=== PATIENT | female | born 1930 | race Caucasian/White ===

== ENCOUNTER 2016-08-17 14:42 | Observation (INO) | payer OTHER ==
[~2016-08-17] VITALS: Ht 152.4 cm; Wt 54.5 kg
[~2016-08-17 14:42] MED LIST: ACCUPRIL20 MG PO; ARTIFICIAL TEAR15 M1 BOTH EYES; ARTIFICIAL TEAR1510 BOTH EYES; ASCORBIC ACID500 M3 PO; ASPIR 8181 M1 PO; ASPIR-LOW81 MG PO; ATHENOL325 MG PO; Aspirin E.C. PO; B COMPLETE1 EACH PO; B-COMPLEX-VITA1 EACH PO; BABY ASPIRIN81 M1 PO; BACTRIM,SEPT1 TABLET PO; C COMPLEX500 MG PO; CELEBREX200 MG PO; CELECOXIB50 MG PO; CHILD ASPIRIN81 M1 PO; CILOSTAZOL100 MG PO; COLACE100 MG PO; Ceftin PO; Colace PO; DILANTIN100 MG PO; DOCUSATE SODIU100 MG PO; Duragesic TD; FENTANYL1 EAC4 TD; GLUCOPHAGE XR750 MG PO; HYDROCODON-ACE1 EAC9; IRON; K-DUR20 MEQ PO; KEFLEX500 MG PO; LASIX20 MG PO; LIDOCAINE700 MG TD; LIPITOR80 MG PO; LOW DOSE ASPIRI81 M2 PO; METFORMIN PO; MOBIC15 MG PO; MULTIVITAMIN; MULTIVITAMIN1 EAC2 PO; Monopril PO; NOVOLOG PE100 UNITS/ SC; OMEPRAZOLE20 MG PO; OXYCODONE ACETAMINOP PO; PERCOCET 5/31 TABLET PO; PHENYTEK200 MG PO; PHENYTOIN SODI200 MG PO; PHENYTOIN SODI300 MG PO; PLAVIX75 MG PO; POTASSIUM CHLO10 ME4 PO; PRAVASTATIN SOD80 MG PO; PRILOSEC OTC20 MG PO; PRILOSEC20 MG PO; PROTONIX20 MG PO; Percocet 5/325,Endoc PO; QUINAPRIL-HCTZ1 EAC1 PO; Rocephin IV; Santyl TP; TRAMADOL HCL50 MG PO; TYLENOL REGULA325 MG PO; VITAMIN E100 UNIT PO; VITAMIN E1000 UNI1 PO; VYTORIN 10/41 TABLET PO
[2016-08-17 16:40] LABS: EOSINOPHIL (%) 0.9 % (0-5); EOSINOPHIL COUNT 0.1 K/uL (0-0.3); HEMATOCRIT 47.1 % (36.0-46.0); IMMATURE GRANULOCYTE (%) 0.4 % (0.0-0.7); IMMATURE GRANULOCYTE COUNT 0.1 K/uL; INSTRUMENT ABS NEUTROPHIL CT 9.8 K/uL; LYMPHOCYTE COUNT 1.3 K/uL (1.0-2.8); MCH 30.5 PG (29.0-34.0); MCHC 32.9 G/DL (30.0-36.0); MCV 92.7 FL (83-99); MEAN PLAT.VOLUME 9.4 uM^3 (9.5-12.4); MONOCYTE (%) 5.6 % (3-12); MONOCYTE COUNT 0.7 K/uL (0-0.8); NEUTROPHIL (%) 82.3 % (45-76); NEUTROPHIL COUNT 9.8 K/uL (1.8-6.4); PLATELET COUNT 279 K/uL (156-360); RBC DIS.WIDTH-CV 15.2 % (11.8-14.6); RBC DIS.WIDTH-SD 51.8 % (39-53); RED BLOOD COUNT 5.08 M/uL (3.80-5.20); WHITE BLOOD COUNT 11.9 K/uL (4.1-10.2)
[2016-08-17 16:49] LABS: CHLORIDE 92 mEq/L (99-109); POTASSIUM 4.3 mEq/L (3.7-5.4); SODIUM 132 mEq/L (136-147)
[2016-08-17 16:51] LABS: GLUCOSE 118 mg/dL (70-99)
[2016-08-17 16:52] LABS: ANION GAP 13 MEQ/L (2-14)
[2016-08-17 16:53] LABS: TOTAL BILIRUBIN 0.4 mg/dL (0.0-1.0)
[2016-08-17 16:54] LABS: ALKALINE PHOSPHATASE 90 IU/L (3-129)
[2016-08-17 16:55] LABS: GFR ESTIMATE (CALCULATED) > 59 mL/min/
[2016-08-17 16:56] LABS: UREA NITROGEN (BUN) 19 mg/dL (9-23)
[2016-08-17 16:58] LABS: LIPASE 60 U/L (1.0-51.0)
[2016-08-17 17:01] LABS: TROP-I INTERPRETATION NEGATIVE; TROPONIN-I 0.02 ng/mL (0.0-0.30)
[2016-08-17 17:55] LABS: ADD MIUA? YES; BILIRUBIN NEGATIVE; BLOOD NEGATIVE; COLOR YELLOW ((YELLOW)); GLUCOSE (STRIP) NEGATIVE; KETONES NEGATIVE; LEUKOCYTES NEGATIVE; NITRITE NEGATIVE; PROTEIN (STRIP) 100; SPECIFIC GRAVITY 1.018 (1.000-1.030); UROBILINOGEN 0.2 MG/DL (0.2-1.0)
[2016-08-17 18:17] LABS: EPITHELIAL CELLS 1+ /HPF; RED BLOOD CELLS NONE SEEN /HPF (0-5)
[2016-08-17 18:18] LABS: BACTERIA RARE /HPF; CALCIUM OXALATE CRYSTALS RARE /HPF; CASTS PRESENT /LPF; CRYSTALS PRESENT; FINE GRANULAR CASTS RARE /LPF; HYALINE CASTS 0-5 /LPF; MUCUS NONE SEEN /LPF; UCUL ADDED? NO
[2016-08-17] MEDS ORDERED: LO-DOSE ASPIRIN81 M2 PO (19:59)
[2016-08-17 21:29] LABS: HDL CHOLESTEROL 76 MG/DL (Desirable>=50); LDL CHOLESTEROL 92 mg/dL (Desirable<100); NON-HDL CHOLESTEROL 108 mg/dL (Desirable<160); TOTAL CHOLESTEROL 184 mg/dL (Desirable<200); TRIGLYCERIDES 81 MG/DL (Normal: <150)
[2016-08-17 22:10] VITALS: BP 112/69
[2016-08-18 01:06] LABS: TROP-I INTERPRETATION NEGATIVE; TROPONIN-I < 0.01 ng/mL (0.0-0.30)
[2016-08-18 01:22] LABS: POINT-OF-CARE METER ID UU13113831
[2016-08-18 04:52] VITALS: BP 109/52
[2016-08-18 07:25] LABS: HEMATOCRIT 41.5 % (36.0-46.0); MCH 30.6 PG (29.0-34.0); MCHC 32.5 G/DL (30.0-36.0); MCV 94.1 FL (83-99); MEAN PLAT.VOLUME 9.7 uM^3 (9.5-12.4); PLATELET COUNT 249 K/uL (156-360); RBC DIS.WIDTH-CV 15.5 % (11.8-14.6); RBC DIS.WIDTH-SD 53.6 % (39-53); RED BLOOD COUNT 4.41 M/uL (3.80-5.20); WHITE BLOOD COUNT 8.5 K/uL (4.1-10.2)
[2016-08-18 07:46] LABS: TROP-I INTERPRETATION NEGATIVE; TROPONIN-I 0.02 ng/mL (0.0-0.30)
[2016-08-18 08:06] LABS: Estimated Average Glucose 140 mg/dL (70-123); HEMOGLOBIN A1c (GLYCOHEMOGLOB) 6.5 % HGB (Below 5.7)
[2016-08-18 08:15] LABS: POINT-OF-CARE METER ID UU13113831
[2016-08-18 09:59] VITALS: BP 131/65
[2016-08-18 11:31] VITALS: BP 124/59
[2016-08-18 12:35] LABS: POINT-OF-CARE METER ID UU14162513
[2016-08-18 16:13] LABS: POINT-OF-CARE METER ID UU13113694
[2016-08-18 17:57] VITALS: BP 143/64
[2016-08-18 20:00] VITALS: BP 145/62
[2016-08-18 22:25] LABS: POINT-OF-CARE METER ID UU14162513
[2016-08-19] VITALS: BP 141/63
[2016-08-19 04:00] VITALS: BP 136/63
[2016-08-19 07:54] LABS: POINT-OF-CARE METER ID UU14162513
[2016-08-19] MEDS ORDERED: DILANTIN100 MG PO (09:24)
[2016-08-19 09:31] VITALS: BP 151/65
[2016-08-19] MEDS ORDERED: PROTONIX40 MG PO (10:16)
[2016-08-19 11:00] LABS: ANION GAP 12 MEQ/L (2-14); CHLORIDE 97 MEQ/L (99-109); GFR ESTIMATE (CALCULATED) > 59 mL/min/; GLUCOSE 164 mg/dL (70-99); POTASSIUM 4.3 MEQ/L (3.7-5.4); SAMPLE HEMOLYSIS CHECK 0; SAMPLE ICTERIC CHECK 0; SAMPLE LIPEMIA CHECK 0; SODIUM 136 MEQ/L (136-147); UREA NITROGEN (BUN) 13 mg/dL (9-23)
[2016-08-19 11:50] VITALS: BP 126/60
[2016-08-19 12:11] LABS: POINT-OF-CARE METER ID UU14162513
== END 2016-08-19 14:39 | disposition home or self-care (01) ==
LOC: EME → EDBD 14:42 → 5WEST 20:45 → EDOF 20:45 → 5WEST 21:57
PROVIDERS: Emergency Medicine; Hospitalist; Internal Medicine; Nurse Practitioner Adult Health
PROC: 0DB68ZX Excision of Stomach, Via Natural or Artificial Opening Endoscopic, Diagnostic (ICD-10-PCS; principal; 2016-08-18)
DX: R11.2 Nausea with vomiting, unspecified (principal); K22.2 Esophageal obstruction; K22.4 Dyskinesia of esophagus; K20.8 Other esophagitis; K29.70 Gastritis, unspecified, without bleeding; E11.9 Type 2 diabetes mellitus without complications; E78.5 Hyperlipidemia, unspecified; K21.9 Gastro-esophageal reflux disease without esophagitis; Z86.73 Personal history of transient ischemic attack (TIA), and cerebral infarction without residual deficits; K59.00 Constipation, unspecified; G40.909 Epilepsy, unspecified, not intractable, without status epilepticus; I11.0 Hypertensive heart disease with heart failure; I50.32 Chronic diastolic (congestive) heart failure; I73.9 Peripheral vascular disease, unspecified; N39.0 Urinary tract infection, site not specified; T42.0X5A Adverse effect of hydantoin derivatives, initial encounter; R53.1 Weakness; R42 Dizziness and giddiness; R41.82 Altered mental status, unspecified
CPT/HCPCS: 70450; 70551; 71020; 74177; 80048; 80053; 80061; 80185; 81003; 82948; 83036; 83690; 84484; 85025; 85027; 88305; 88342 TC; 93005; 93306; 93880; 99281; 99285; C9113; G0378; J1644; J1815; J2405; J7030; J7120

== ENCOUNTER → 2017-10-22 | Outpatient (CLI) | payer OTHER ==
[~2017-10-22] MED LIST changes: +LO-DOSE ASPIRIN81 M2 PO; +PROTONIX40 MG PO
== END | disposition home or self-care (01) ==
LOC: AMB 08:00
DX: C44.612 Basal cell carcinoma of skin of right upper limb, including shoulder (principal); C44.519 Basal cell carcinoma of skin of other part of trunk
CPT/HCPCS: 88305